=== PATIENT | female | born 1940 | race Caucasian/White ===

== ENCOUNTER 2022-06-26 15:44 | Inpatient (IN) | payer OTHER ==
[2022-06-26 16:30] VITALS: BMI 21.7
[2022-06-26 17:49] LABS: HEMOGLOBIN 15.8 G/dL (10.7-15.3); MCH 33.4 pg (25.7-33.7); MCHC 34.4 g/dl (32.0-36.0); MEAN CELL VOLUME 97.3 fl (80-96); MEAN PLT VOLUME 10.9 fl (7.5-11.1); PLATELET COUNT 225.2 10^3/uL (134-434); RBC 4.73 10^6/uL (3.60-5.2); RDW 17.2 % (11.6-15.6); WHITE BLOOD COUNT 23.9 10^3/uL (4.0-10.8)
[2022-06-26 17:57] LABS: ALBUMIN 2.8 g/dl (3.4-5.0); BILIRUBIN,TOTAL 1.1 mg/dl (0.2-1); CALCIUM 10.9 mg/dl (8.5-10); CREATININE 1.2 mg/dl (0.55-1.3); TOT PROT 6.6 g/dl (6.4-8.2)
[2022-06-26 18:14] LABS: PLATELET ESTIMATE ADEQUATE
[2022-06-26] MEDS ORDERED: SODIUM CHLORIDE 0.9% 1000 ML INFUS.BAG IV ONE (18:45)
[2022-06-26] MEDS ORDERED: PIPERACILLIN/TAZOB 4.5 GM 4.5 GM in DEXTROSE 5%-WATER 100 ML IVPB ONE (19:05)
[2022-06-26] MEDS ORDERED: VANCOMYCIN 1 GM in D5W (PRE-DOCKED) 1,000 MG/250 ML IVPB ONE (19:06)
[2022-06-26] MEDS ORDERED: PIPERACILLIN/TAZOBACTAM 4.5 GM VIAL IVPB ONE (19:12)
[2022-06-26] MEDS ORDERED: VANCOMYCIN 1,000 MG VIAL (RESTRICTED TO ID ONLY) ONE (19:12)
[2022-06-26 19:29] LABS: N-TERMINAL BNP 1354.9 pg/ml (5-450)
[2022-06-26 23:24] LABS: LACTIC ACID 3.1 mmol/L (0.4-2.0)
[2022-06-27 02:29] LABS: LACTIC ACID 2.4 mmol/L (0.4-2.0)
[2022-06-27] MEDS ORDERED: PIPERACILLIN/TAZOBACTAM 4.5 GM VIAL IVPB ONE (05:07)
[2022-06-27] MEDS: PIPERACILLIN/TAZOB 2.25 GM 2.25 GM in DEXTROSE 5%-WATER - 50 ML IVPB SCH ×3 (05:17→16:00)
[2022-06-27 07:33] LABS: HEMATOCRIT 44.6 % (32.4-45.2); HEMOGLOBIN 14.9 G/dL (10.7-15.3); MCH 32.8 pg (25.7-33.7); MCHC 33.5 g/dl (32.0-36.0); MEAN CELL VOLUME 98.1 fl (80-96); MEAN PLT VOLUME 10.8 fl (7.5-11.1); PLATELET COUNT 205.4 10^3/uL (134-434); RBC 4.55 10^6/uL (3.60-5.2); RDW 16.6 % (11.6-15.6); WHITE BLOOD COUNT 23.2 10^3/uL (4.0-10.8)
[2022-06-27 07:37] LABS: ALBUMIN 2.4 g/dl (3.4-5.0); CALCIUM 9.9 mg/dl (8.5-10); CREATININE 1.2 mg/dl (0.55-1.3); TOT PROT 5.6 g/dl (6.4-8.2)
[2022-06-27 08:10] LABS: PLATELET ESTIMATE ADEQUATE
[2022-06-27 09:41] LABS: LACTIC ACID 2.4 mmol/L (0.4-2.0)
[2022-06-27 11:00] LABS: CHOLESTEROL 243 mg/dl (50-200); HDL CHOLESTEROL 13 mg/dl (40-60); LDH 373 U/L (84-246); LDL CHOLESTEROL (ONLY DFH) 199 mg/dl (5-100); TRIGLYCERIDES 155 mg/dl (0-150)
[2022-06-27 13:05] LABS: ARTERIAL BLD GAS O2 SATURATION 96.1 % (95-98); ARTERIAL BLOOD GAS BASE EXCESS -3.8 mmol/L (-2-2); ARTERIAL BLOOD GAS PO2 82.1 mmHg (80-100); ARTERIAL BLOOD GAS pH 7.393 (7.350-7.450)
[2022-06-27] MEDS: FUROSEMIDE 40 MG/4 ML INJECTABLE VIAL IVPUSH SCH (19:40)
[2022-06-27 19:55] LABS: ACTIVATED PTT 32.7 SECONDS (25.2-36.5); INR 1.11 (0.83-1.09); PROTHROMBIN TIME (PATIENT) 12.8 SEC (9.7-13.0)
[2022-06-27] MEDS: HEPARIN NA (PORCINE) 5,000 UNITS/ML 1ML VIAL SQ SCH (21:42)
[2022-06-28] MEDS: PIPERACILLIN/TAZOB 3.375 GM 3.375 GM in DEXTROSE 5%-WATER - 50 ML IVPB SCH ×3 (01:14→17:51)
[2022-06-28] MEDS ORDERED: PIPERACILLIN/TAZOB 2.25 GM 2.25 GM in DEXTROSE 5%-WATER - 50 ML IVPB SCH (03:00)
[2022-06-28 08:21] LABS: ALBUMIN 2.4 g/dl (3.4-5.0); BILIRUBIN,TOTAL 1.3 mg/dl (0.2-1); CALCIUM 10.2 mg/dl (8.5-10); CREATININE 1.2 mg/dl (0.55-1.3); TOT PROT 5.7 g/dl (6.4-8.2)
[2022-06-28] MEDS: FUROSEMIDE 40 MG/4 ML INJECTABLE VIAL IVPUSH SCH (09:50)
[2022-06-28] MEDS: HEPARIN NA (PORCINE) 5,000 UNITS/ML 1ML VIAL SQ SCH ×2 (09:51→22:05)
[2022-06-28 10:38] LABS: BASO % 0.4 % (0-2.0); EOS % 0.3 % (0-4.5); HEMATOCRIT 44.4 % (32.4-45.2); LYMPH % 6.3 % (8-40); MCH 30.7 pg (25.7-33.7); MCHC 31.6 g/dl (32.0-36.0); MEAN PLT VOLUME 11.1 fl (7.5-11.1); MONO % 12.9 % (3.8-10.2); NEUT % 80.1 % (42.8-82.8); PLATELET COUNT 224 10^3/uL (134-434); RBC 4.57 M/mm3 (3.60-5.2); RDW 17.3 % (11.6-15.6); WHITE BLOOD COUNT 20.9 K/mm3 (4.0-10.0)
[2022-06-28 11:07] LABS: ANISOCYTOSIS 0; HELMET CELLS 0; HOWELL-JOLLY BODIES 0; MACROCYTOSIS 0; OVALOCYTE 0; ROULEAU 0; SICKELED CELLS 0; TARGET CELLS 0; TEAR DROP CELLS 0; TOXIC GRANULATION 0
[2022-06-29] MEDS: PIPERACILLIN/TAZOB 3.375 GM 3.375 GM in DEXTROSE 5%-WATER - 50 ML IVPB SCH ×3 (04:27→18:01)
[2022-06-29 09:00] LABS: BASO % 0.2 % (0-2.0); EOS % 0.1 % (0-4.5); HEMOGLOBIN 15.4 GM/dL (10.7-15.3); LYMPH % 3.4 % (8-40); MCH 30.6 pg (25.7-33.7); MCHC 31.5 g/dl (32.0-36.0); MEAN CELL VOLUME 97.3 fl (80-96); MEAN PLT VOLUME 10.7 fl (7.5-11.1); MONO % 13.8 % (3.8-10.2); NEUT % 82.5 % (42.8-82.8); PLATELET COUNT 229 10^3/uL (134-434); RBC 5.04 M/mm3 (3.60-5.2); RDW 17.2 % (11.6-15.6); WHITE BLOOD COUNT 28.9 K/mm3 (4.0-10.0)
[2022-06-29] MEDS ORDERED: METOPROLOL TARTRATE 5 MG/5 ML VIAL IVPUSH ONE (09:17)
[2022-06-29] MEDS ORDERED: METOPROLOL TARTRATE 25 MG TABLET (FP) PO ONE (09:18)
[2022-06-29 09:38] LABS: ALBUMIN 2.2 g/dl (3.4-5.0); BILIRUBIN,TOTAL 0.8 mg/dL (0.2-1); BLOOD UREA NITROGEN 43.8 mg/dL (7-18); CALCIUM 10.7 mg/dL (8.5-10.1); CREATININE 1.5 mg/dL (0.55-1.3); TOT PROT 6.5 g/dl (6.4-8.2)
[2022-06-29] MEDS ORDERED: ASPIRIN 81 MG CHEWABLE TABLETS PO SCH (10:00)
[2022-06-29 10:40] LABS: ANISOCYTOSIS 0; HELMET CELLS 0; HOWELL-JOLLY BODIES 0; MACROCYTOSIS 0; OVALOCYTE 0; ROULEAU 0; SICKELED CELLS 0; TARGET CELLS 0; TEAR DROP CELLS 0; TOXIC GRANULATION 0
[2022-06-29] MEDS: HEPARIN NA (PORCINE) 5,000 UNITS/ML 1ML VIAL SQ SCH ×2 (10:40→21:37)
[2022-06-29 12:01] LABS: ARTERIAL BLD GAS O2 SATURATION 96.1 % (95-98); ARTERIAL BLOOD GAS BASE EXCESS -6.3 mmol/L (-2-2); ARTERIAL BLOOD GAS PO2 80.9 mmHg (80-100); ARTERIAL BLOOD GAS pH 7.397 (7.350-7.450)
[2022-06-29 12:03] LABS: ALLENS TEST POSITIVE
[2022-06-29] MEDS ORDERED: VANCOMYCIN 1 GM/200 ML PREMIX BAG (RESTRICTED TO ID ONLY) IVPB ONE (12:43)
[2022-06-29] MEDS: DEXTROSE 5%-0.45% SALINE 1,000 ML IV SCH (13:22)
[2022-06-29 17:45] LABS: BLOOD UREA NITROGEN 48.1 mg/dL (7-18); CALCIUM 10.4 mg/dL (8.5-10.1)
[2022-06-29 17:49] LABS: CREATININE 1.6 mg/dL (0.55-1.3)
[2022-06-29 17:50] LABS: TOT PROT 5.6 g/dl (6.4-8.2)
[2022-06-29] MEDS: METOPROLOL TARTRATE 25 MG TABLET (FP) PO SCH (20:11)
[2022-06-30] MEDS: PIPERACILLIN/TAZOB 3.375 GM 3.375 GM in DEXTROSE 5%-WATER - 50 ML IVPB SCH ×3 (01:22→17:14)
[2022-06-30] MEDS: DEXTROSE 5%-0.45% SALINE 1,000 ML IV SCH (06:30)
[2022-06-30] MEDS: METOPROLOL TARTRATE 25 MG TABLET (FP) PO SCH ×2 (09:17→20:48)
[2022-06-30 13:18] LABS: BASO % 0.2 % (0-2.0); EOS % 0.1 % (0-4.5); HEMATOCRIT 47.3 % (32.4-45.2); HEMOGLOBIN 15.2 GM/dL (10.7-15.3); LYMPH % 3.1 % (8-40); MCH 31.1 pg (25.7-33.7); MCHC 32.2 g/dl (32.0-36.0); MEAN CELL VOLUME 96.5 fl (80-96); MEAN PLT VOLUME 11.2 fl (7.5-11.1); MONO % 11.5 % (3.8-10.2); NEUT % 85.1 % (42.8-82.8); PLATELET COUNT 260 10^3/uL (134-434); RDW 17.5 % (11.6-15.6); WHITE BLOOD COUNT 26.5 K/mm3 (4.0-10.0)
[2022-06-30 14:04] LABS: CALCIUM 10.6 mg/dL (8.5-10.1); MAGNESIUM 2.6 mg/dL (1.8-2.4)
[2022-06-30 14:05] LABS: ALBUMIN 2.2 g/dl (3.4-5.0)
[2022-06-30 14:07] LABS: BLOOD UREA NITROGEN 50.5 mg/dL (7-18); PHOSPHOROUS 3.8 mg/dL (2.5-4.9)
[2022-06-30 14:08] LABS: CREATININE 1.7 mg/dL (0.55-1.3)
[2022-06-30 14:10] LABS: BILIRUBIN,TOTAL 0.6 mg/dL (0.2-1); TOT PROT 6.5 g/dl (6.4-8.2)
[2022-06-30 14:11] LABS: ANISOCYTOSIS 1+; MACROCYTOSIS 0
[2022-06-30 17:17] LABS: ARTERIAL BLD GAS O2 SATURATION 93.9 % (95-98); ARTERIAL BLOOD GAS PO2 73.6 mmHg (80-100)
[2022-06-30 17:18] LABS: ALLENS TEST POSITIVE
[2022-07-01] MEDS: PIPERACILLIN/TAZOB 3.375 GM 3.375 GM in DEXTROSE 5%-WATER - 50 ML IVPB SCH ×3 (01:30→17:37)
[2022-07-01 08:07] LABS: ALBUMIN 2.2 g/dl (3.4-5.0); BLOOD UREA NITROGEN 57.9 mg/dL (7-18); CALCIUM 10.8 mg/dL (8.5-10.1); MAGNESIUM 2.6 mg/dL (1.8-2.4)
[2022-07-01 08:10] LABS: CREATININE 1.9 mg/dL (0.55-1.3); PHOSPHOROUS 4.5 mg/dL (2.5-4.9)
[2022-07-01 08:12] LABS: BILIRUBIN,TOTAL 0.8 mg/dL (0.2-1); TOT PROT 6.7 g/dl (6.4-8.2)
[2022-07-01] MEDS: METOPROLOL TARTRATE 25 MG TABLET (FP) PO SCH ×2 (09:51→21:10)
[2022-07-01] MEDS ORDERED: METOPROLOL TARTRATE 25 MG TABLET (FP) PO SCH (11:07)
[2022-07-01 11:45] LABS: HEMATOCRIT 48.2 % (32.4-45.2); HEMOGLOBIN 15.3 GM/dL (10.7-15.3); MCH 30.9 pg (25.7-33.7); MCHC 31.7 g/dl (32.0-36.0); MEAN CELL VOLUME 97.3 fl (80-96); MEAN PLT VOLUME 10.7 fl (7.5-11.1); PLATELET COUNT 269 10^3/uL (134-434); RBC 4.95 M/mm3 (3.60-5.2); RDW 17.6 % (11.6-15.6); WHITE BLOOD COUNT 19.4 K/mm3 (4.0-10.0)
[2022-07-01 11:56] LABS: INR 1.03 (0.83-1.09); PROTHROMBIN TIME (PATIENT) 11.9 SEC (9.7-13.0)
[2022-07-01 11:58] LABS: ACTIVATED PTT 29.1 SECONDS (25.2-36.5)
[2022-07-01] MEDS ORDERED: ESCITALOPRAM OXALATE 10 MG TABLET PO SCH ×2 (12:30→22:00)
[2022-07-01] MEDS ORDERED: ALBUMIN HUMAN 25% 100 ML VIAL IV ONE ×2 (13:00→13:30)
[2022-07-01 13:52] LABS: ERYTHROCYTE SEDIMENTATION RATE 25 mm/hr (0-30)
[2022-07-01 15:22] LABS: BF WBC & OTHER NUCLEATED CELLS 147 /mm3
[2022-07-01] MEDS ORDERED: HEPARIN NA (PORCINE) 5,000 UNITS/ML 1ML VIAL IVPUSH PRN ×2 (15:30)
[2022-07-01] MEDS ORDERED: HEPARIN INFUSION - 25,000 UNITS/500 ML INFUS.BAG IVPB SCH (15:30)
[2022-07-01 15:31] LABS: BODY FLUID MACROPHAGES 22 %; BODY FLUID MESOTHELIAL 6 %; BODY FLUID MONOCYTE 20 %
[2022-07-01] MEDS: HEPARIN NA (PORCINE) 5,000 UNITS/ML 1ML VIAL SQ SCH (21:10)
[2022-07-02] MEDS: PIPERACILLIN/TAZOB 3.375 GM 3.375 GM in DEXTROSE 5%-WATER - 50 ML IVPB SCH ×2 (05:30→10:06)
[2022-07-02] MEDS: HEPARIN NA (PORCINE) 5,000 UNITS/ML 1ML VIAL SQ SCH (09:20)
[2022-07-02] MEDS: METOPROLOL TARTRATE 25 MG TABLET (FP) PO SCH ×2 (09:20→21:21)
[2022-07-02] MEDS: CEFTRIAXONE 1 GM in DEXTROSE 5%-WATER - 50 ML IVPB SCH (15:55)
[2022-07-02] MEDS: APIXABAN 2.5 MG TABLET PO SCH ×2 (19:11→21:21)
[2022-07-02 23:58] LABS: URINE APPEARANCE TURBID; URINE BILIRUBIN NEGATIVE (NEGATIVE); URINE COLOR YELLOW; URINE GLUCOSE (UA) NEGATIVE (NEGATIVE); URINE KETONE NEGATIVE (NEGATIVE); URINE LEUK ESTERASE NEGATIVE (NEGATIVE); URINE NITRITE NEGATIVE (NEGATIVE); URINE PROTEIN TRACE (NEGATIVE); URINE UROBILINOGEN 0.2 mg/dL (0.2-1.0)
[2022-07-03 00:42] LABS: URINE UREA NITROGEN 816 MG/DL (350-1000)
[2022-07-03] MEDS: METOPROLOL TARTRATE 25 MG TABLET (FP) PO SCH (09:25)
[2022-07-03] MEDS: APIXABAN 2.5 MG TABLET PO SCH (09:25)
[2022-07-03] MEDS: CEFTRIAXONE 1 GM in DEXTROSE 5%-WATER - 50 ML IVPB SCH (09:25)
[2022-07-03] MEDS: LACTULOSE 10 GM/15 ML BULK BOTTLE RC SCH (12:07)
[2022-07-03] MEDS ORDERED: LACTULOSE 20 GM/30 ML UDC (FOR ORAL USE ONLY) PO SCH (12:15)
[2022-07-03 15:10] LABS: BODY FLUID ALBUMIN 0.8 g/dL (Not Estab.)
[2022-07-03 15:24] LABS: ACTIVATED PTT 30.7 SECONDS (25.2-36.5)
[2022-07-03 15:25] LABS: HEMATOCRIT 41.1 % (32.4-45.2); HEMOGLOBIN 13.3 GM/dL (10.7-15.3); MCH 31.2 pg (25.7-33.7); MCHC 32.4 g/dl (32.0-36.0); MEAN CELL VOLUME 96.2 fl (80-96); MEAN PLT VOLUME 11.5 fl (7.5-11.1); PLATELET COUNT 313 10^3/uL (134-434); RBC 4.27 M/mm3 (3.60-5.2); RDW 17.4 % (11.6-15.6); WHITE BLOOD COUNT 20.7 K/mm3 (4.0-10.0)
[2022-07-03 15:38] LABS: CALCIUM 10.3 mg/dL (8.5-10.1)
[2022-07-03 15:39] LABS: BLOOD UREA NITROGEN 74.4 mg/dL (7-18); MAGNESIUM 2.9 mg/dL (1.8-2.4)
[2022-07-03 15:40] LABS: ALBUMIN 2.1 g/dl (3.4-5.0)
[2022-07-03 15:43] LABS: BILIRUBIN,TOTAL 0.5 mg/dL (0.2-1); TOT PROT 5.7 g/dl (6.4-8.2)
[2022-07-03 15:44] LABS: PHOSPHOROUS 4.3 mg/dL (2.5-4.9)
[2022-07-03 15:48] LABS: INR 1.3 (0.83-1.09)
[2022-07-03] MEDS ORDERED: HEPARIN NA (PORCINE) 5,000 UNITS/ML 1ML VIAL IVPUSH PRN ×2 (16:09)
[2022-07-03] MEDS ORDERED: SODIUM CHLORIDE 1,000 ML IV SCH (16:30)
[2022-07-03] MEDS: HEPARIN - 25,000 UNIT in SODIUM CHLORIDE 495 ML IV SCH (17:27)
[2022-07-04] MEDS: METOPROLOL TARTRATE 25 MG TABLET (FP) PO SCH ×3 (00:55→20:24)
[2022-07-04 08:35] LABS: HEMATOCRIT 44.6 % (32.4-45.2); HEMOGLOBIN 14.4 GM/dL (10.7-15.3); MCH 31.1 pg (25.7-33.7); MCHC 32.2 g/dl (32.0-36.0); MEAN CELL VOLUME 96.5 fl (80-96); MEAN PLT VOLUME 12.2 fl (7.5-11.1); PLATELET COUNT 291 10^3/uL (134-434); RBC 4.62 M/mm3 (3.60-5.2); RDW 17.6 % (11.6-15.6); WHITE BLOOD COUNT 23.1 K/mm3 (4.0-10.0)
[2022-07-04 08:53] LABS: ALBUMIN 2.2 g/dl (3.4-5.0); BLOOD UREA NITROGEN 76.2 mg/dL (7-18); CALCIUM 10.2 mg/dL (8.5-10.1); MAGNESIUM 2.9 mg/dL (1.8-2.4)
[2022-07-04 08:56] LABS: PHOSPHOROUS 3.9 mg/dL (2.5-4.9)
[2022-07-04 08:57] LABS: BILIRUBIN,TOTAL 0.4 mg/dL (0.2-1); TOT PROT 5.8 g/dl (6.4-8.2)
[2022-07-04] MEDS ORDERED: LACTULOSE 20 GM/30 ML UDC (FOR ORAL USE ONLY) PO PRN (09:28)
[2022-07-04] MEDS: CEFTRIAXONE 1 GM in DEXTROSE 5%-WATER - 50 ML IVPB SCH (09:39)
[2022-07-04] MEDS: LACTULOSE 20 GM/30 ML UDC (FOR ORAL USE ONLY) PO SCH ×4 (11:59→21:24)
[2022-07-04] MEDS: LACTULOSE 10 GM/15 ML BULK BOTTLE RC SCH (14:24)
[2022-07-04] MEDS: PIPERACILLIN/TAZOB 2.25 GM 2.25 GM in DEXTROSE 5%-WATER - 50 ML IVPB SCH ×2 (15:03→18:25)
[2022-07-04] MEDS: HEPARIN - 25,000 UNIT in SODIUM CHLORIDE 495 ML IV SCH (16:32)
[2022-07-05] MEDS: PIPERACILLIN/TAZOB 2.25 GM 2.25 GM in DEXTROSE 5%-WATER - 50 ML IVPB SCH ×3 (03:54→17:03)
[2022-07-05] MEDS: LACTULOSE 20 GM/30 ML UDC (FOR ORAL USE ONLY) PO SCH ×3 (05:54→21:54)
[2022-07-05 08:20] LABS: HEMATOCRIT 39.5 % (32.4-45.2); HEMOGLOBIN 12.9 GM/dL (10.7-15.3); MCH 31.4 pg (25.7-33.7); MCHC 32.6 g/dl (32.0-36.0); MEAN CELL VOLUME 96.2 fl (80-96); MEAN PLT VOLUME 11.8 fl (7.5-11.1); PLATELET COUNT 271 10^3/uL (134-434); RBC 4.11 M/mm3 (3.60-5.2); RDW 17.6 % (11.6-15.6); WHITE BLOOD COUNT 25.3 K/mm3 (4.0-10.0)
[2022-07-05 08:48] LABS: BLOOD UREA NITROGEN 76.8 mg/dL (7-18); CALCIUM 10.3 mg/dL (8.5-10.1); MAGNESIUM 2.9 mg/dL (1.8-2.4)
[2022-07-05 08:51] LABS: CREATININE 1.9 mg/dL (0.55-1.3); PHOSPHOROUS 3.6 mg/dL (2.5-4.9)
[2022-07-05 08:52] LABS: BILIRUBIN,TOTAL 0.4 mg/dL (0.2-1); TOT PROT 5.4 g/dl (6.4-8.2)
[2022-07-05] MEDS: METOPROLOL TARTRATE 25 MG TABLET (FP) PO SCH ×2 (09:00→21:53)
[2022-07-05] MEDS: LACTULOSE 10 GM/15 ML BULK BOTTLE RC SCH (13:46)
[2022-07-05] MEDS: HEPARIN - 25,000 UNIT in SODIUM CHLORIDE 495 ML IV SCH (17:47)
[2022-07-05] MEDS ORDERED: AMINO ACIDS 4.25%/D5W 1,000 ML IV SCH (18:30)
[2022-07-06] MEDS: PIPERACILLIN/TAZOB 2.25 GM 2.25 GM in DEXTROSE 5%-WATER - 50 ML IVPB SCH ×3 (03:00→17:49)
[2022-07-06] MEDS: LACTULOSE 20 GM/30 ML UDC (FOR ORAL USE ONLY) PO SCH ×4 (03:44→21:39)
[2022-07-06 07:24] LABS: HEMATOCRIT 38.6 % (32.4-45.2); HEMOGLOBIN 12.6 GM/dL (10.7-15.3); MCH 31.3 pg (25.7-33.7); MCHC 32.6 g/dl (32.0-36.0); MEAN PLT VOLUME 11.3 fl (7.5-11.1); PLATELET COUNT 270 10^3/uL (134-434); RBC 4.02 M/mm3 (3.60-5.2); RDW 17.7 % (11.6-15.6); WHITE BLOOD COUNT 28.4 K/mm3 (4.0-10.0)
[2022-07-06 08:02] LABS: BLOOD UREA NITROGEN 82.3 mg/dL (7-18); CALCIUM 10.2 mg/dL (8.5-10.1); MAGNESIUM 2.9 mg/dL (1.8-2.4)
[2022-07-06 08:05] LABS: CREATININE 1.9 mg/dL (0.55-1.3); PHOSPHOROUS 2.7 mg/dL (2.5-4.9)
[2022-07-06 08:07] LABS: BILIRUBIN,TOTAL 0.5 mg/dL (0.2-1); TOT PROT 5.6 g/dl (6.4-8.2)
[2022-07-06] MEDS: METOPROLOL TARTRATE 25 MG TABLET (FP) PO SCH ×2 (08:15→20:51)
[2022-07-06] MEDS: AMINO ACIDS 4.25%/D5W 1,000 ML IV SCH (09:59)
[2022-07-06] MEDS: KCL 10 MEQ IVPB 10 MEQ/100 ML INFUS.BAG IVPB SCH ×2 (10:59→12:16)
[2022-07-06] MEDS: HEPARIN - 25,000 UNIT in SODIUM CHLORIDE 495 ML IV SCH (17:59)
[2022-07-06] MEDS: MEROPENEM 1 GM in DEXTROSE 5%-WATER 100 ML IVPB SCH (20:51)
[2022-07-07] MEDS: LACTULOSE 20 GM/30 ML UDC (FOR ORAL USE ONLY) PO SCH ×3 (05:16→21:55)
[2022-07-07] MEDS: MEROPENEM 1 GM in DEXTROSE 5%-WATER 100 ML IVPB SCH ×2 (07:52→21:55)
[2022-07-07] MEDS: METOPROLOL TARTRATE 25 MG TABLET (FP) PO SCH ×2 (07:52→21:53)
[2022-07-07] MEDS: AMINO ACIDS 4.25%/D5W 1,000 ML IV SCH (08:07)
[2022-07-07 08:12] LABS: HEMATOCRIT 38.3 % (32.4-45.2); HEMOGLOBIN 12.3 GM/dL (10.7-15.3); MCH 30.9 pg (25.7-33.7); MCHC 32.2 g/dl (32.0-36.0); MEAN CELL VOLUME 96.1 fl (80-96); MEAN PLT VOLUME 11.5 fl (7.5-11.1); PLATELET COUNT 248 10^3/uL (134-434); RBC 3.99 M/mm3 (3.60-5.2)
[2022-07-07 08:20] LABS: INR 1.62 (0.83-1.09); PROTHROMBIN TIME (PATIENT) 18.7 SEC (9.7-13.0)
[2022-07-07 08:24] LABS: MAGNESIUM 2.8 mg/dL (1.8-2.4)
[2022-07-07 08:27] LABS: CREATININE 1.8 mg/dL (0.55-1.3); PHOSPHOROUS 2.3 mg/dL (2.5-4.9)
[2022-07-07 08:28] LABS: BILIRUBIN,TOTAL 0.6 mg/dL (0.2-1); TOT PROT 5.4 g/dl (6.4-8.2)
[2022-07-07 08:30] LABS: BLOOD UREA NITROGEN 85.9 mg/dL (7-18)
[2022-07-07 08:46] LABS: WHITE BLOOD COUNT 31.2 K/mm3 (4.0-10.0)
[2022-07-07] MEDS: PANTOPRAZOLE SODIUM 40 MG VIAL IVPUSH SCH (09:55)
[2022-07-08] MEDS: HEPARIN - 25,000 UNIT in SODIUM CHLORIDE 495 ML IV SCH (00:53)
[2022-07-08] MEDS: AMINO ACIDS 4.25%/D5W 1,000 ML IV SCH ×4 (00:59→22:14)
[2022-07-08] MEDS: LACTULOSE 20 GM/30 ML UDC (FOR ORAL USE ONLY) PO SCH ×3 (06:26→21:43)
[2022-07-08] MEDS: MEROPENEM 1 GM in DEXTROSE 5%-WATER 100 ML IVPB SCH (08:03)
[2022-07-08 08:27] LABS: INR 1.61 (0.83-1.09); PROTHROMBIN TIME (PATIENT) 18.6 SEC (9.7-13.0)
[2022-07-08 08:30] LABS: ACTIVATED PTT 46.1 SECONDS (25.2-36.5)
[2022-07-08 08:32] LABS: HEMATOCRIT 39.4 % (32.4-45.2); HEMOGLOBIN 12.6 GM/dL (10.7-15.3); MEAN CELL VOLUME 96.7 fl (80-96); PLATELET COUNT 251 10^3/uL (134-434); RBC 4.07 M/mm3 (3.60-5.2); RDW 18.3 % (11.6-15.6)
[2022-07-08 08:37] LABS: ALBUMIN 1.9 g/dl (3.4-5.0); BILIRUBIN,DIRECT 0.3 mg/dL (0.0-0.2); BLOOD UREA NITROGEN 94.3 mg/dL (7-18); CALCIUM 9.9 mg/dL (8.5-10.1); MAGNESIUM 2.8 mg/dL (1.8-2.4)
[2022-07-08] MEDS: METOPROLOL TARTRATE 25 MG TABLET (FP) PO SCH (08:37)
[2022-07-08 08:39] LABS: BILIRUBIN,TOTAL 0.5 mg/dL (0.2-1); PHOSPHOROUS 2.7 mg/dL (2.5-4.9)
[2022-07-08 08:40] LABS: BILIRUBIN,TOTAL 0.6 mg/dL (0.2-1); CREATININE 2.1 mg/dL (0.55-1.3); TOT PROT 5.5 g/dl (6.4-8.2)
[2022-07-08 09:10] LABS: WHITE BLOOD COUNT 36.1 K/mm3 (4.0-10.0)
[2022-07-08 09:20] VITALS: RESP 20
[2022-07-08] MEDS: PANTOPRAZOLE SODIUM 40 MG VIAL IVPUSH SCH (09:29)
[2022-07-08 09:48] LABS: ANISOCYTOSIS 0; HELMET CELLS 0; HOWELL-JOLLY BODIES 0; MACROCYTOSIS 0; OVALOCYTE 0; ROULEAU 0; SICKELED CELLS 0; TARGET CELLS 0; TEAR DROP CELLS 0; TOXIC GRANULATION 0
[2022-07-08] MEDS ORDERED: METOPROLOL TARTRATE 25 MG TABLET (FP) PO SCH (18:32)
[2022-07-08] MEDS ORDERED: HEPARIN NA (PORCINE) 5,000 UNITS/ML 1ML VIAL IVPUSH PRN ×2 (18:37)
[2022-07-08] MEDS ORDERED: HEPARIN SOD,PORK IN 0.45% NACL 25,000 UNIT/500 ML INFUS.BAG IVPB SCH (18:45)
[2022-07-08 19:15] VITALS: BP 93/58; PULSE 82; TEMP 97.4
[2022-07-08] MEDS ORDERED: HEPARIN NA (PORCINE) 5,000 UNITS/ML 1ML VIAL SQ SCH (22:00)
[2022-07-09] MEDS ORDERED: MEROPENEM 1 GM in DEXTROSE 5%-WATER 100 ML IVPB SCH (10:00)
== END 2022-07-08 23:50 | disposition short-term general hospital (02) | DRG 871 ==
LOC: FER 15:44 → FM/S 19:29 → J4W 06-28 14:28
PROVIDERS: ADMIT Internal Medicine; ATTEND Internal Medicine
PROC: 0W9G3ZX Drainage of Peritoneal Cavity, Percutaneous Approach, Diagnostic (ICD-10-PCS; principal; 2022-07-01)
PROC: 02HV33Z Insertion of Infusion Device into Superior Vena Cava, Percutaneous Approach (ICD-10-PCS; 2022-07-06)
PROC: B548ZZA Ultrasonography of Superior Vena Cava, Guidance (ICD-10-PCS; 2022-07-06)
DX: A41.9 Sepsis, unspecified organism (principal); G93.41 Metabolic encephalopathy; J18.9 Pneumonia, unspecified organism; J96.01 Acute respiratory failure with hypoxia; R18.8 Other ascites; N17.9 Acute kidney failure, unspecified; I31.8 Other specified diseases of pericardium; E87.20 Acidosis, unspecified; J90 Pleural effusion, not elsewhere classified; N13.30 Unspecified hydronephrosis; I47.1 Supraventricular tachycardia; E87.0 Hyperosmolality and hypernatremia; E46 Unspecified protein-calorie malnutrition; I47.20 Ventricular tachycardia, unspecified; E83.52 Hypercalcemia; E87.5 Hyperkalemia; J44.9 Chronic obstructive pulmonary disease, unspecified; R79.89 Other specified abnormal findings of blood chemistry; D64.9 Anemia, unspecified; K76.9 Liver disease, unspecified; I48.91 Unspecified atrial fibrillation; E88.09 Other disorders of plasma-protein metabolism, not elsewhere classified; I48.0 Paroxysmal atrial fibrillation; K76.82 Hepatic encephalopathy; B19.20 Unspecified viral hepatitis C without hepatic coma; E86.0 Dehydration; R62.7 Adult failure to thrive; Z68.21 Body mass index [BMI] 21.0-21.9, adult
CPT/HCPCS: 0241U-QW; 36415; 36600; 71045-TC-FY; 71250-TC; 71275-TC; 74177-TC; 76705-TC; 76775-TC; 80053; 80061; 81003; 82042; 82105; 82140; 82150; 82247; 82248; 82378; 82570; 82728; 82803; 82945; 82962; 83010; 83036; 83540; 83550; 83605; 83615; 83735; 83880; 83986; 84100; 84157; 84300; 84439; 84443; 84478; 85025; 85027; 85379; 85384; 85610; 85651; 85730; 86140; 86301; 86304; 86480; 86704; 87040; 87070; 87075; 87077; 87081; 87086; 87116; 87205; 87206; 87340; 87517; 87522; 87899; 88108; 88305-TC; 93306-TC; 93925-TC; 94010; 97161-GP; 99285-25; C9803-CS; J1644; Q9967; U0003; U0005